=== PATIENT | male | born 1995 | race American Indian/Alaskan Native ===

== ENCOUNTER 2019-08-22 18:27 | Emergency (ER) | payer MEDICAID ==
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
[2019-08-22] MEDS ORDERED: HYDROcodone/ACETAMINOPHEN 5-325 MG TAB PO ONE (20:32)
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
--- NOTE | 2019-08-22 20:58 | XRay Report ---
RIGHT CLAVICLE 2 VIEWS 2006 INDICATION: right sided rib pain, r/o fx COMPARISON: None available. FINDINGS: Negative study CHEST WITH RIGHT RIBS 3 VIEWS 2003 INDICATION: right sided rib pain, r/o fx COMPARISON: None available. FINDINGS: Lung patton appear clear. No pneumothorax is seen. No mediastinal widening is noted. No obv ious pleural effusions are seen. No fractures are noted. Scoliosis is seen. Signer Name: Yoav Dao MD Signed: 08/22/2019 8:53 PM Workstation Name: [id number]
[2019-08-22 22:09] VITALS: BP 118/76
== END 2019-08-22 21:34 | disposition home or self-care (01) ==
LOC: ED 18:27
DX: S20.211A Contusion of right front wall of thorax, initial encounter (principal); S30.0XXA Contusion of lower back and pelvis, initial encounter; Z79.899 Other long term (current) drug therapy; Z98.890 Other specified postprocedural states; Y04.2XXA Assault by strike against or bumped into by another person, initial encounter; Y93.89 Activity, other specified; Y92.89 Other specified places as the place of occurrence of the external cause; Y99.8 Other external cause status